=== PATIENT | female | born 1995 | race Caucasian/White ===

== ENCOUNTER 2017-03-01 23:15 | Emergency (ER) | payer MEDICAID, OTHER ==
[~2017-03-01] VITALS: Ht 157.5 cm; Wt 77.1 kg
[2017-03-01 23:18] VITALS: BP 120/73
--- NOTE | 2017-03-01 23:26 | NUR ---
TO LOBBY, A/W MELBA SOFIA ERMD NOTED
[2017-03-01 23:27] VITALS: BP 120/73
--- NOTE | 2017-03-02 02:19 | NUR ---
PATIENT LEFT WITHOUT BEING SEEN BY DR. TRISTAN. NO FURTHER CARE PROVIDED FOR PATIENT.
== END 2017-03-02 02:19 | disposition left against medical advice (07) ==
LOC: MED 23:15
DX: O26.891 Other specified pregnancy related conditions, first trimester (principal); R10.9 Unspecified abdominal pain; Z3A.01 Less than 8 weeks gestation of pregnancy; Z53.21 Procedure and treatment not carried out due to patient leaving prior to being seen by health care provider

== ENCOUNTER 2017-03-09 12:50 | Emergency (ER) | payer OTHER ==
[~2017-03-09] VITALS: Ht 165.1 cm; Wt 78.5 kg
[2017-03-09 13:03] VITALS: BP 119/72
--- NOTE | 2017-03-09 14:08 | NUR ---
Patient ambulated to bed 1 at this time.
[2017-03-09] MEDS ORDERED: ACETAMINOPHEN EXTRA STRENGTH 500 MG TAB PO ONE (14:30)
--- NOTE | 2017-03-09 14:50 | NUR ---
PATIENT PRESENTS TO ED WITH C/O LUQ PAIN X LAST NOC; . PT STATES SHE VOMITTED TODAY; DENIES DIARRHEA; SKIN IS PINK/WARM/DRY;HX OF DM; AAOX4 WITH EVEN AND STEADY GAIT; LUNGS CLEAR BL; HR EVEN AND REGULAR; PT DENIES ANY FEVER, CP, SOB, OR COUGH AT THIS TIME; PATIENT STATES PAIN OF 7/10 AT THIS TIME;PATIENT POSITIONED FOR COMFORT; HOB ELEVATED; BEDRAILS UP X2; BED DOWN. ALL MONITORS IN PLACED;ER MD MADE AWARE OF PT STATUS.
--- NOTE | 2017-03-09 15:11 | NUR ---
Note undone in EDM - 03/09/17 at 1516 by [email or web address] PATIENT PRESENTS TO ED WITH C/O CONGESTION AND COUGH X 1 WEEK . PT STATES SHE HAS CP. ALSO C/O SOB O2 SAT 0F 99% AT ROOM AIR;FEELS NAUSEOUS BUT DENIES VOMITTING; SKIN IS PINK/WARM/DRY; AAOX4 WITH EVEN AND STEADY GAIT; HR EVEN AND REGULAR; PATIENT STATES PAIN OF 7/10 AT THIS TIME;PATIENT POSITIONED FOR COMFORT; HOB ELEVATED; BEDRAILS UP X2; BED DOWN. ALL MONITORS IN PLACED;ER MD MADE AWARE OF PT STATUS.
--- NOTE | 2017-03-09 15:15 | NUR ---
US AT BEDSIDE
[2017-03-09 15:17] LABS: APPEARANCE,URINE CLEAR (CLEAR); BILIRUBIN,URINE NEGATIVE (NEGATIVE); BLOOD, URINE NEGATIVE (NEGATIVE); LEUKOCYTE ESTERASE ,URINE NEGATIVE (NEGATIVE); NITRITE, URINE NEGATIVE (NEGATIVE); PH,URINE 5.5 (5.0-9.0); UGLUCOSE 3+ (NEGATIVE)
[2017-03-09 15:23] LABS: COLOR,URINE STRAW (YELLOW)
[2017-03-09 16:49] VITALS: BP 106/72
--- NOTE | 2017-03-09 16:49 | NUR ---
Patient discharged with v/s stable. Written and verbal after care instructions given and explained. Patient verbalized understanding. Ambulatory with steady gait. All questions addressed prior to discharge. Advised to follow up with PMD.
== END 2017-03-09 16:49 | disposition home or self-care (01) ==
LOC: MED 12:50
DX: O34.81 Maternal care for other abnormalities of pelvic organs, first trimester (principal); Z3A.01 Less than 8 weeks gestation of pregnancy; E11.9 Type 2 diabetes mellitus without complications
CPT/HCPCS: 76817; 81003; 82948; 99285; Q0092

== ENCOUNTER 2017-06-02 14:30 | Observation (INO) | payer OTHER ==
[2017-06-02 15:08] VITALS: BP 95/59
[2017-06-02] MEDS ORDERED: PREN-546 PO (15:22)
[2017-06-02] MEDS ORDERED: HUM SUBQ ×2 (15:22→15:25)
[2017-06-02] MEDS ORDERED: FERR-252 PO (15:25)
[2017-06-02] MEDS ORDERED: [UNRECOGNIZED DRUG - OTHER] ×2 (15:27→15:29)
== END 2017-06-02 15:40 | disposition home or self-care (01) ==
LOC: MLD 14:30
PROVIDERS: ADMIT Obstetrics & Gynecology; ATTEND Obstetrics & Gynecology
DX: O99.89 Other specified diseases and conditions complicating pregnancy, childbirth and the puerperium (principal); M54.9 Dorsalgia, unspecified; Z3A.00 Weeks of gestation of pregnancy not specified
CPT/HCPCS: 81000; G0378

== ENCOUNTER 2019-10-09 02:55 | Emergency (ER) | payer OTHER ==
[~2019-10-09] VITALS: Ht 154.9 cm; Wt 81.6 kg
[~2019-10-09 02:55] MED LIST: FERR-252 PO; HUM SUBQ; PREN-546 PO; [UNRECOGNIZED DRUG - OTHER]
[2019-10-09 03:13] VITALS: BP 143/99
--- NOTE | 2019-10-09 03:29 | NUR ---
24/F FROM HOME WITH A POSSIBLE FOREIGN BODY TO LEFT EAR. PT IS GAURDING EAR AND UNABLE TO ASSESS DUE TO PATIENT DISCOMFORT. IN BED FOR MSE. DR RIBEIRO AWARE OF PT.
--- NOTE | 2019-10-09 03:39 | NUR ---
Dr. Velásquez examining patient.
--- NOTE | 2019-10-09 03:40 | NUR ---
SUCCESSFUL REMOVAL OF INSECT FROM LEFT EAR BY DR GABRIEL. EAR IRRIGATED WITH NORMAL SALINE BY DONNIE SCHAEFER. PT TOLERATED WELL.
[2019-10-09 03:55] VITALS: BP 143/99
== END 2019-10-09 03:55 | disposition home or self-care (01) ==
LOC: MED 02:55
DX: T16.2XXA Foreign body in left ear, initial encounter (principal); E11.9 Type 2 diabetes mellitus without complications; Z79.899 Other long term (current) drug therapy; Z79.4 Long term (current) use of insulin; Z98.890 Other specified postprocedural states; X58.XXXA Exposure to other specified factors, initial encounter; Y93.89 Activity, other specified; Y92.89 Other specified places as the place of occurrence of the external cause; Y99.8 Other external cause status
CPT/HCPCS: 69200; 99284